=== PATIENT | female | born 1985 | race Caucasian/White ===

== ENCOUNTER 2017-04-27 13:48 | Inpatient (IN) | payer OTHER ==
[~2017-04-27] VITALS: Ht 167.6 cm; Wt 91.0 kg
[2017-05-01] MEDS ORDERED: D5%-LACTATED RINGERS 1,000 ML IV SCH (22:08)
[2017-05-01] MEDS ORDERED: OXYTOCIN 30U/ 0.9% NaCL 500ML 500 ML IV PRN (22:08)
[2017-05-01] MEDS ORDERED: OXYTOCIN 30U/ 0.9% NaCL 500ML 500 ML IV ONE (22:08)
[2017-05-01] MEDS ORDERED: MISOPROSTOL 25 MCG TABLET ONE (22:17)
[2017-05-01] MEDS ORDERED: NEWBORN KIT ONE (22:17)
[2017-05-01] MEDS ORDERED: OXYTOCIN 30U/ 0.9% NaCL 500ML 500 ML ONE (22:17)
[2017-05-01] MEDS ORDERED: TERBUTALINE 1 MG/ML, 1ML IVPush PRN (22:30)
[2017-05-01] MEDS ORDERED: ONDANSETRON 2MG/ML, 2ML IVPush PRN (22:30)
[2017-05-01] MEDS ORDERED: MISOPROSTOL 25 MCG TABLET VG PRN (22:30)
[2017-05-01] MEDS ORDERED: FENTANYL PF 100 MCG/2ML IV PRN (22:30)
[2017-05-01] MEDS ORDERED: CALCIUM CARBONATE 500 MG TAB.CHEW PO PRN (22:30)
[2017-05-01] MEDS ORDERED: FENTANYL PF 100 MCG/2ML ONE (23:43)
[2017-05-01 23:50] LABS: BASOPHILS # (AUTO) 0.03 x10^3/uL (0-0.1); BASOPHILS % (AUTO) 0 % (0-1); EOSINOPHILS # (AUTO) 0.08 x10^3/uL (0-0.4); EOSINOPHILS % (AUTO) 1 % (1-7); LYMPHOCYTES # (AUTO) 1.89 x10^3/uL (1-3.4); LYMPHOCYTES % (AUTO) 17 % (22-44); MD NO; MEAN CORPUSCULAR HEMOGLOBIN 30.7 pg (27.0-34.8); MEAN CORPUSCULAR HGB CONC 33.9 g/dL (32.4-35.8); MEAN CORPUSCULAR VOLUME 90.6 fL (80-100); MEAN PLATELET VOLUME 8.3 fL (7.4-10.4); MONOCYTES # (AUTO) 1.08 x10^3/uL (0.2-0.8); MONOCYTES % (AUTO) 10 % (2-9); NEUTROPHILS # (AUTO) 7.83 x10^3/uL (1.8-6.8); NEUTROPHILS % (AUTO) 72 % (42-75); PLATELET COUNT 222 x10^3/uL (130-400); RED BLOOD COUNT 3.58 x10^6/uL (3.82-5.3); RED CELL DISTRIBUTION WIDTH 15.4 % (9.6-15.2)
[2017-05-01] MEDS: FENTANYL PF 100 MCG/2ML IVPush PRN (23:52)
[2017-05-01] MEDS: LACTATED RINGERS 1,000 ML IV SCH (23:54)
[2017-05-02] MEDS: LACTATED RINGERS 1,000 ML IV SCH ×4 (00:44→14:47)
[2017-05-02] MEDS ORDERED: FENTANYL PF 100 MCG/2ML ONE (00:53)
[2017-05-02] MEDS: FENTANYL PF 100 MCG/2ML IVPush PRN (00:56)
[2017-05-02] MEDS ORDERED: FENTANYL/BUPIV./NS/PF 250 ML EPIDCONT ONE (01:25)
[2017-05-02] MEDS ORDERED: BUPIVACAINE/PF 0.25% ONE (01:25)
[2017-05-02] MEDS ORDERED: FENTANYL/BUPIV./NS/PF 250 ML EPIDCONT SCH (01:27)
[2017-05-02] MEDS ORDERED: LACTATED RINGERS 1,000 ML IVBOLUS PRN (01:30)
[2017-05-02] MEDS ORDERED: NALOXONE 0.4 MG/ML, 1ML IVPush PRN (01:30)
[2017-05-02] MEDS ORDERED: EPINEPHRINE 1 MG/ML, 1ML ONE (02:46)
[2017-05-02] MEDS ORDERED: EPHEDRINE 50 MG/ML, 1ML ONE (02:47)
[2017-05-02] MEDS: EPHEDRINE 50 MG/ML, 1ML IVPush PRN ×2 (02:50→04:20)
[2017-05-02] MEDS ORDERED: CALCIUM CARBONATE 500 MG TAB.CHEW ONE ×2 (06:36→16:01)
[2017-05-02] MEDS ORDERED: LEVO25TA4 PO (07:38)
[2017-05-02] MEDS ORDERED: PREN1TAB60 PO (07:38)
[2017-05-02 08:04] VITALS: BP 110/55
[2017-05-02] MEDS ORDERED: ONDANSETRON 2MG/ML, 2ML ONE (14:37)
[2017-05-02] MEDS ORDERED: LIDOCAINE 1%, 20ML ONE (18:36)
[2017-05-02] MEDS ORDERED: RHOGAM FROM BLOOD BANK 1 NOTE EA IM/IV ONE (19:00)
[2017-05-02] MEDS ORDERED: MEASLES,MUMPS&RUBELLA VACC/PF 0.5 ML SQ PRN (19:00)
[2017-05-02] MEDS ORDERED: ACETAMINOPHEN 325 MG TABLET PO PRN ×2 (19:00)
[2017-05-02] MEDS ORDERED: CALCIUM CARBONATE 500 MG TAB.CHEW PO PRN (19:00)
[2017-05-02] MEDS ORDERED: OXYcodone/APAP 5/325MG TABLET PO PRN (19:00)
[2017-05-02] MEDS ORDERED: MISOPROSTOL 200 MCG TABLET PR PRN (19:00)
[2017-05-02] MEDS ORDERED: ONDANSETRON 2MG/ML, 2ML IV PRN (19:00)
[2017-05-02] MEDS ORDERED: DIPH,PERTUSS(ACELL),TET VAC/PF NC IM-VACC PRN (19:00)
[2017-05-02] MEDS ORDERED: MAGNESIUM HYDROXIDE 8%, 30ML UDC PO PRN (19:00)
[2017-05-02] MEDS: DOCUSATE 100 MG CAPSULE PO PRN (20:36)
[2017-05-02] MEDS: IBUPROFEN 600 MG TABLET PO PRN (20:36)
[2017-05-02 20:40] VITALS: BP 92/57
[2017-05-02] MEDS: OXYTOCIN 30U/ 0.9% NaCL 500ML 500 ML IV SCH (20:40)
[2017-05-02] MEDS: OXYcodone/APAP 5/325MG TABLET PO PRN (21:13)
[2017-05-02 23:40] VITALS: BP 90/52
[2017-05-03] MEDS: OXYcodone/APAP 5/325MG TABLET PO PRN ×3 (02:00→12:29)
[2017-05-03] MEDS: IBUPROFEN 600 MG TABLET PO PRN ×4 (02:04→20:42)
[2017-05-03 04:20] VITALS: BP 90/55
[2017-05-03] MEDS: OXYTOCIN 30U/ 0.9% NaCL 500ML 500 ML IV SCH ×2 (05:00→15:00)
[2017-05-03 05:39] LABS: MEAN CORPUSCULAR HEMOGLOBIN 31.1 pg (27.0-34.8); MEAN CORPUSCULAR HGB CONC 34.1 g/dL (32.4-35.8); MEAN CORPUSCULAR VOLUME 91.1 fL (80-100); MEAN PLATELET VOLUME 7.5 fL (7.4-10.4); PLATELET COUNT 207 x10^3/uL (130-400); RED BLOOD COUNT 3.16 x10^6/uL (3.82-5.3); RED CELL DISTRIBUTION WIDTH 15.4 % (9.6-15.2)
[2017-05-03 06:07] LABS: BASOPHILS # (AUTO) 0.06 x10^3/uL (0-0.1); BASOPHILS % (AUTO) 0 % (0-1); EOSINOPHILS # (AUTO) 0.04 x10^3/uL (0-0.4); EOSINOPHILS % (AUTO) 0 % (1-7); LYMPHOCYTES # (AUTO) 2.09 x10^3/uL (1-3.4); LYMPHOCYTES % (AUTO) 12 % (22-44); MD SCAN; MONOCYTES # (AUTO) 1.41 x10^3/uL (0.2-0.8); MONOCYTES % (AUTO) 8 % (2-9); NEUTROPHILS # (AUTO) 14.31 x10^3/uL (1.8-6.8); NEUTROPHILS % (AUTO) 80 % (42-75)
[2017-05-03] MEDS: LEVOTHYROXINE 25 MCG TABLET HOMEMEDPO SCH (06:30)
[2017-05-03 08:12] VITALS: BP 120/68
[2017-05-03] MEDS: DOCUSATE 100 MG CAPSULE PO PRN ×2 (08:16→20:42)
[2017-05-03] MEDS: PRENATAL VIT/IRON/FA 1 EACH TABLET PO SCH (08:17)
[2017-05-03 12:23] VITALS: BP 95/61
[2017-05-03 15:30] VITALS: BP 95/57
[2017-05-03 19:25] VITALS: BP 99/66
[2017-05-04] MEDS: OXYTOCIN 30U/ 0.9% NaCL 500ML 500 ML IV SCH ×2 (00:33→11:00)
[2017-05-04] MEDS: IBUPROFEN 600 MG TABLET PO PRN ×2 (03:47→08:49)
[2017-05-04] MEDS: LEVOTHYROXINE 25 MCG TABLET HOMEMEDPO SCH (06:00)
[2017-05-04 07:59] VITALS: BP 99/68
[2017-05-04] MEDS: DOCUSATE 100 MG CAPSULE PO PRN (08:49)
[2017-05-04] MEDS: PRENATAL VIT/IRON/FA 1 EACH TABLET PO SCH (09:00)
[2017-05-04] MEDS ORDERED: OXYC-302 PO (09:20)
[2017-05-04] MEDS ORDERED: DOCU-131 PO (09:20)
[2017-05-04] MEDS ORDERED: IBUP-1222 PO (09:20)
[2017-05-04] MEDS: OXYcodone/APAP 5/325MG TABLET PO PRN (10:51)
== END 2017-05-04 12:18 | disposition home or self-care (01) | DRG 775 ==
LOC: LDIP 05-01 22:06 → 2NW 05-02 20:17
PROVIDERS: ADMIT Obstetrics & Gynecology; ATTEND Obstetrics & Gynecology
PROC: 10E0XZZ Delivery of Products of Conception, External Approach (ICD-10-PCS; principal; 2017-05-02)
PROC: 0KQM0ZZ Repair Perineum Muscle, Open Approach (ICD-10-PCS; 2017-05-02)
PROC: 3E0R3BZ Introduction of Anesthetic Agent into Spinal Canal, Percutaneous Approach (ICD-10-PCS; 2017-05-02)
PROC: 00HU33Z Insertion of Infusion Device into Spinal Canal, Percutaneous Approach (ICD-10-PCS; 2017-05-02)
DX: O48.0 Post-term pregnancy (principal); O70.1 Second degree perineal laceration during delivery; Z37.0 Single live birth; Z3A.40 40 weeks gestation of pregnancy
CPT/HCPCS: 36415; 82803; 85025; 86850; 86900; J2405; J3010; J2590; J7120; J7121

== ENCOUNTER 2020-07-11 19:31 | Outpatient (CLI) | payer OTHER ==
[~2020-07-11] VITALS: Ht 167.6 cm; Wt 95.9 kg
[~2020-07-11 19:31] MED LIST: DOCU-131 PO; IBUP-1222 PO; LEVO25TA4 PO; OXYC1TAB14 PO; PREN1TAB60 PO
[2020-07-11 19:39] VITALS: BP 119/69
== END 2020-07-11 22:39 | disposition home or self-care (01) ==
LOC: LDOP 19:31
PROVIDERS: ATTEND Obstetrics & Gynecology
DX: O36.8130 Decreased fetal movements, third trimester, not applicable or unspecified (principal); Z3A.36 36 weeks gestation of pregnancy
CPT/HCPCS: 59025

== ENCOUNTER 2020-07-25 05:22 | Inpatient (IN) | payer OTHER ==
[~2020-07-25] VITALS: Ht 167.6 cm; Wt 99.5 kg
[2020-07-25] MEDS ORDERED: TERBUTALINE 1 MG/ML, 1ML IVPush PRN (05:30)
[2020-07-25] MEDS ORDERED: FENTANYL PF 100 MCG/2ML IVPush PRN (05:30)
[2020-07-25] MEDS ORDERED: FENTANYL PF 100 MCG/2ML IV PRN (05:30)
[2020-07-25] MEDS ORDERED: ONDANSETRON 2MG/ML, 2ML IVPush PRN (05:30)
[2020-07-25] MEDS ORDERED: OXYTOCIN 30U/ 0.9% NaCL 500ML 500 ML IV PRN (05:30)
[2020-07-25] MEDS ORDERED: TERBUTALINE 1 MG/ML, 1ML SQ PRN (05:30)
[2020-07-25] MEDS ORDERED: D5%-LACTATED RINGERS 1,000 ML IV SCH (05:30)
[2020-07-25] MEDS ORDERED: NEWBORN KIT ONE (05:46)
[2020-07-25] MEDS ORDERED: OXYTOCIN 30U/ 0.9% NaCL 500ML 500 ML ONE (05:51)
[2020-07-25] MEDS ORDERED: LIDOCAINE 1%, 20ML ONE (05:51)
[2020-07-25] MEDS ORDERED: MISOPROSTOL 200 MCG TABLET ONE (05:51)
[2020-07-25] MEDS: PLEASE ENTER HEIGHT AND WEIGHT MC SCH ×3 (06:00→22:00)
[2020-07-25 06:12] LABS: BASOPHILS % (AUTO) 0 % (0-1); EOSINOPHILS % (AUTO) 2 % (1-7); LYMPHOCYTES % (AUTO) 18 % (22-44); MD NO; MEAN CORPUSCULAR HEMOGLOBIN 29.4 pg (27.0-34.8); MEAN CORPUSCULAR HGB CONC 33.5 g/dL (32.4-35.8); MEAN PLATELET VOLUME 8.1 fL (7.4-10.4); MONOCYTES % (AUTO) 8 % (2-9); NEUTROPHILS % (AUTO) 72 % (42-75); PLATELET COUNT 227 x10^3/uL (130-400); RED BLOOD COUNT 4.04 x10^6/uL (3.82-5.3)
[2020-07-25] MEDS: LACTATED RINGERS 1,000 ML IV SCH ×2 (06:50→08:42)
[2020-07-25] MEDS ORDERED: FENTANYL/BUPIV./NS/PF 250 ML EPIDCONT ONE (09:09)
[2020-07-25] MEDS ORDERED: LACTATED RINGERS 1,000 ML IV SCH (10:00)
[2020-07-25] MEDS ORDERED: NALOXONE 0.4 MG/ML, 1ML IVPush PRN (10:00)
[2020-07-25] MEDS ORDERED: LACTATED RINGERS 1,000 ML IVBOLUS PRN (10:00)
[2020-07-25] MEDS ORDERED: FENTANYL/BUPIV./NS/PF 250 ML EPIDCONT SCH (10:00)
[2020-07-25] MEDS ORDERED: EPHEDRINE 50 MG/ML, 1ML IVPush PRN (10:00)
[2020-07-25] MEDS ORDERED: ONDANSETRON 2MG/ML, 2ML IV PRN (16:00)
[2020-07-25] MEDS ORDERED: SIMETHICONE 80 MG CHEW TAB PO PRN (16:00)
[2020-07-25] MEDS ORDERED: OXYcodone/APAP 5/325MG TABLET PO PRN ×2 (16:00)
[2020-07-25] MEDS ORDERED: MISOPROSTOL 200 MCG TABLET PR PRN (16:00)
[2020-07-25] MEDS: OXYTOCIN 30U/ 0.9% NaCL 500ML 500 ML IV SCH (16:00)
[2020-07-25] MEDS ORDERED: DOCUSATE 100 MG CAPSULE PO PRN (16:00)
[2020-07-25] MEDS ORDERED: MAGNESIUM HYDROXIDE 8%, 30ML UDC PO PRN (16:00)
[2020-07-25] MEDS ORDERED: DIPH,PERTUSS(ACELL),TET VAC/PF NC IM-VACC PRN (16:00)
[2020-07-25] MEDS ORDERED: ACETAMINOPHEN 325 MG TABLET PO PRN ×2 (16:00)
[2020-07-25] MEDS ORDERED: RHOGAM FROM BLOOD BANK 1 NOTE EA IM/IV ONE (16:00)
[2020-07-25 18:00] VITALS: BP 108/71
[2020-07-25 20:00] VITALS: BP 98/65
[2020-07-25 23:50] VITALS: BP 95/65
[2020-07-26 00:31] LABS: BASOPHILS % (AUTO) 1 % (0-1); EOSINOPHILS % (AUTO) 1 % (1-7); LYMPHOCYTES % (AUTO) 15 % (22-44); MEAN CORPUSCULAR HEMOGLOBIN 28.8 pg (27.0-34.8); MEAN CORPUSCULAR HGB CONC 32.7 g/dL (32.4-35.8); MEAN PLATELET VOLUME 7.9 fL (7.4-10.4); MONOCYTES % (AUTO) 9 % (2-9); NEUTROPHILS % (AUTO) 75 % (42-75); PLATELET COUNT 197 x10^3/uL (130-400); RED BLOOD COUNT 3.95 x10^6/uL (3.82-5.3); RED CELL DISTRIBUTION WIDTH 15.4 % (9.6-15.2)
[2020-07-26 01:03] LABS: MD NO
[2020-07-26] MEDS: OXYTOCIN 30U/ 0.9% NaCL 500ML 500 ML IV SCH ×2 (02:00→12:00)
[2020-07-26] MEDS: IBUPROFEN 600 MG TABLET PO PRN ×2 (03:36→12:16)
[2020-07-26 03:40] VITALS: BP 97/66
[2020-07-26] MEDS: PLEASE ENTER HEIGHT AND WEIGHT MC SCH (06:00)
[2020-07-26 07:15] VITALS: BP 102/74
[2020-07-26] MEDS: PRENATAL VIT/IRON/FA 1 EACH TABLET PO SCH ×2 (07:57→12:17)
== END 2020-07-26 16:45 | disposition home or self-care (01) | DRG 807 ==
LOC: LDIP 05:22 → 2NW 17:49
PROVIDERS: ADMIT Obstetrics & Gynecology; ATTEND Obstetrics & Gynecology
PROC: 10E0XZZ Delivery of Products of Conception, External Approach (ICD-10-PCS; principal; 2020-07-25)
PROC: 0KQM0ZZ Repair Perineum Muscle, Open Approach (ICD-10-PCS; 2020-07-25)
PROC: 3E033VJ Introduction of Other Hormone into Peripheral Vein, Percutaneous Approach (ICD-10-PCS; 2020-07-25)
PROC: 10H07YZ Insertion of Other Device into Products of Conception, Via Natural or Artificial Opening (ICD-10-PCS; 2020-07-25)
PROC: 3E0R3BZ Introduction of Anesthetic Agent into Spinal Canal, Percutaneous Approach (ICD-10-PCS; 2020-07-25)
PROC: 00HU33Z Insertion of Infusion Device into Spinal Canal, Percutaneous Approach (ICD-10-PCS; 2020-07-25)
DX: O13.4 Gestational [pregnancy-induced] hypertension without significant proteinuria, complicating childbirth (principal); Z37.0 Single live birth; O69.81X0 Labor and delivery complicated by cord around neck, without compression, not applicable or unspecified; O70.1 Second degree perineal laceration during delivery; Z3A.38 38 weeks gestation of pregnancy; Z20.822 Contact with and (suspected) exposure to COVID-19; Z91.040 Latex allergy status
CPT/HCPCS: 36415; 85025; 86592; 86850; 86900; 87635; G0378; J2590; J7120